=== PATIENT | male | born 1980 ===

== ENCOUNTER 2019-05-31 14:02 | Emergency (ER) | payer SELFPAY ==
[2019-05-31 15:08] LABS: ANION GAP 13.4; CHLORIDE,CL 97 mmol/L (101-111); SODIUM,NA 131 mmol/L (135-145)
[2019-05-31] MEDS ORDERED: Sodium Chloride 0.9% 1,000 ML IV ONE (15:11)
[2019-05-31] MEDS ORDERED: Acetaminophen 325 MG Tab PO ONE (15:21)
[2019-05-31] MEDS ORDERED: Ibuprofen 800 MG Tab PO ONE (15:21)
[2019-05-31] MEDS ORDERED: cefTRIAXone 2 GM in Sodium Chloride 0.9% 100 ML IV ONE (15:23)
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
== END 2019-05-31 16:54 ==
LOC: DL.ED 14:02
DX: E77.8 Other disorders of glycoprotein metabolism (principal); R50.9 Fever, unspecified; R00.0 Tachycardia, unspecified; D64.9 Anemia, unspecified; Z86.19 Personal history of other infectious and parasitic diseases
CPT/HCPCS: 36415; 71045; 80053; 80305; 81001; 82150; 83605; 83690; 83735; 83880; 84156; 84443; 84484; 85025; 85610; 85730; 87040; 87077; 87081; 87430; 87804; 93005; 93010; 96365; 99284; A9270; J0696; J7030; J7050